=== PATIENT | female | born 1945 | race Caucasian/White ===

== ENCOUNTER → 2017-05-10 | Outpatient (CLI) | payer MEDICARE, OTHER ==
--- NOTE | 2017-05-10 14:31 | PCVCIMAG ---
APPROVED REPORT Study performed: 05/10/2017 12:57:02 EXAM: Comprehensive 2D, Doppler, and color-flow Echocardiogram Status: routine Other Information Study Quality: Adequate Indications CAD Hypertension/HDD Breast cancer. PVD 2D Dimensions IVSd: 8.48 (7-11mm)LVOT Diam: 15.25 (18-24mm) LVDd: 46.65 mm LVPWs: 24.50 mm PWd: 8.10 (7-11mm)Ascending Ao: 29.52 (22-36mm) LVDs: 30.32 (25-40mm) Left Atrium: 40.24 (27-40mm) Aortic Root: 22.94 mm Weiss's LVEF: 64.30 % Volumes Left Atrial Volume (Systole) Single Plane 4CH: 33.46 mLSingle Plane 2CH: 25.26 mL LA ESV Index: 19.00 mL/m2 Aortic Valve LVOT Max P.47 mmHg LVOT Max V: 0.93 m/s Mitral Valve E/A Ratio: 1.0 MV Decel. Time: 125.33 ms MV E Max Kelton.: 0.73 m/s MV A Kelton.: 0.73 m/s IVRT: 121.11 ms Pulmonary Vein P Vein S: 0.66 m/sP Vein A: 0.28 m/s P Vein D: 0.51 m/sP Vein A Dur.: 34.6 msec P Vein S/D Ratio: 1.29 Tricuspid Valve TR Peak Kelton.: 2.60 m/s TR Peak Gr.: 27.02 mmHg Left Ventricle The left ventricle is normal size. There is normal LV segmental wall motion. There is normal left ventricular wall thickness. Left ventricular systolic function is normal. The left ventricular ejection fraction is within the normal range. LVEF is 50%. The left ventricular diastolic function is normal. Right Ventricle The right ventricle is normal size. The right ventricular systolic function is normal. Atria The left atrium size is normal. The right atrium size is normal. Aortic Valve The aortic valve is normal in structure. No aortic regurgitation is present. There is no aortic valvular stenosis. Mitral Valve The mitral valve is normal in structure. Mild mitral regurgitation. Tricuspid Valve The tricuspid valve is normal in structure. Mild tricuspid regurgitation. P Pulmonic Valve The pulmonary valve is normal in structure. Trace pulmonic regurgitation. Great Vessels The aortic root is normal in size. IVC is normal in size and collapses with >50% inspiration Pericardium There is no pericardial effusion. <Conclusion> The left ventricle is normal size. There is normal left ventricular wall thickness. The left ventricular diastolic function is normal. The right ventricle is normal size. The left atrium size is normal. The right atrium size is normal. Mild mitral regurgitation. The aortic root is normal in size. There is no pericardial effusion.
== END | disposition home or self-care (01) ==
LOC: PCVCIMAG 12:50
PROVIDERS: ATTEND Internal Medicine Cardiovascular Disease
DX: I08.1 Rheumatic disorders of both mitral and tricuspid valves (principal); I10 Essential (primary) hypertension; E11.9 Type 2 diabetes mellitus without complications; I25.10 Atherosclerotic heart disease of native coronary artery without angina pectoris; K21.9 Gastro-esophageal reflux disease without esophagitis; I73.9 Peripheral vascular disease, unspecified; E11.319 Type 2 diabetes mellitus with unspecified diabetic retinopathy without macular edema; E78.5 Hyperlipidemia, unspecified; I65.29 Occlusion and stenosis of unspecified carotid artery; Z90.11 Acquired absence of right breast and nipple; Z79.4 Long term (current) use of insulin; Z79.899 Other long term (current) drug therapy; Z88.1 Allergy status to other antibiotic agents; Z88.5 Allergy status to narcotic agent; Z87.891 Personal history of nicotine dependence; Z95.1 Presence of aortocoronary bypass graft; Z85.3 Personal history of malignant neoplasm of breast
CPT/HCPCS: 80061; 93005; 93306; G0463

== ENCOUNTER → 2017-10-11 | Outpatient (CLI) | payer MEDICARE, OTHER ==
[~2017-10-11] MED LIST: REGADENOSON 0.4 MG/5 ML DISP.SYRIN. IV ONE
--- NOTE | 2017-10-11 16:59 | PCVCIMAG ---
APPROVED REPORT Exam: Nuclear Stress Test Indication: CAD Patient Location: Out-Patient Stress Nurse: Betty Glaser RN, Verónica Ashraf RN [place] Tech:Justin RamirezJEANNE Ht: 5 ft 1 in Wt: 137 lbs BSA: 1.61 m2 HR: 55 bpm BP: 164/71 mmHg BMI: 25.8 Rhythm: SB, T wave abnormality Medical History Medical History: Age, Hyperlipidemia, HTN, Former Smoker Medications: Amlodipine, Clopidogrel, Cymbalta, Lantus, Ativan, Bystolic (held 24 hours) Crestor Allergies: Augmentin, Codeine, EES, Levaquin Previous Cardiac Procedures: Known RCA occlusion, Prior Nuc- ishcemic Pretest Chest Pain Characteristics: No chest pain Exercise History: Sedentary Physical Disabilities: Legs NM EXAM: Myocardial Perfusion REST/STRESS Imaging Protocol: Rest Tc-99m/Stress Tc-99m 1 day Resting Data Rest SPECT myocardial perfusion imaging was performed in supine position 45 minutes following the intravenous injection of 11.7 mCi of Tc-99m Sestamibi. Time of rest injection: 0900 Date: 10/11/2017 Administration Route: IV Administration Site: Left Hand Pharmacologic Stress Pharmacologic stress test was performed by injecting Regadenoson 0.4 mg IV push followed by the intravenous injection of 35 mCi of Tc-99m Sestamibi. Time of stress injection: 1025 Date: 10/11/2017 Administration Route: IV Administration Site: Left Hand Gated Stress SPECT was performed 45 minutes after stress injection. The images were gated to evaluate regional wall motion and calculate left ventricular ejection fraction. Study Quality Study: Good Study Data Post stress, the left ventricular ejection was 79%.. SSS: 5 SRS: 6 SDS: 3 TID = 0.93. 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 Wall Motion Normal left ventricular size and function. 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 Post stress, the left ventricular ejection was 79%.. No change since prior study dated July 2016. Interpreted by: Clyde Umana MD Electronically Approved: 10/11/2017 12:53:25 Stress Test Details Stress Test: Pharmacologic stress testing performed using 0.4 mg of regadenoson per 5 mL given IV over 10 seconds. Reason for pharmacologic stress test: Leg pain. HR Resting HR: 55 bpmMax Heart Rate (APMHR): 149 bpm Max HR Achieved: 71 bpmTarget HR (85% APMHR): 126 bpm % of APMHR: 47 Recovery HR: 63 bpm BP Resting BP: 164/71 mmHg Max BP: 150/67 mmHg ECG Resting ECG: Sinus Bradycardia, TWave abnormality Stress ECG: Sinus Rhythm Recovery ECG: Sinus Rhythm Clinical Reason for Termination: Completed protocol Stress Symptoms: Nausea, Dyspnea, Exercise duration: min 55 sec Exercise capacity: 1.0 METs Symptoms resolved over time Stress ECG Conclusion ECG: Non-ischemic Clinical: Non-ischemic <Conclusion> ECG: Non-ischemic Clinical: Non-ischemic
== END | disposition home or self-care (01) ==
LOC: PCVCIMAG 08:48
PROVIDERS: ATTEND Internal Medicine Cardiovascular Disease
DX: I25.10 Atherosclerotic heart disease of native coronary artery without angina pectoris (principal); E78.5 Hyperlipidemia, unspecified; I10 Essential (primary) hypertension; Z87.891 Personal history of nicotine dependence
CPT/HCPCS: 78452; 93017; A9500; J2785

== ENCOUNTER → 2018-04-15 | Outpatient (CLI) | payer MEDICARE, OTHER | END | disposition home or self-care (01) | LOC: PCVCCLINIC 11:17 | DX: I25.10 Atherosclerotic heart disease of native coronary artery without angina pectoris (principal); I10 Essential (primary) hypertension; E10.8 Type 1 diabetes mellitus with unspecified complications; E10.65 Type 1 diabetes mellitus with hyperglycemia; I34.0 Nonrheumatic mitral (valve) insufficiency; R94.31 Abnormal electrocardiogram [ECG] [EKG]; Z95.1 Presence of aortocoronary bypass graft; Z88.8 Allergy status to other drugs, medicaments and biological substances; Z87.891 Personal history of nicotine dependence; Z79.4 Long term (current) use of insulin; Z79.899 Other long term (current) drug therapy | CPT/HCPCS: 80061; 93005; G0463 ==

== ENCOUNTER → 2018-10-07 | Outpatient (CLI) | payer MEDICARE, OTHER | END | disposition home or self-care (01) | LOC: PCVCCLINIC 11:53 | PROVIDERS: ATTEND Internal Medicine Cardiovascular Disease | DX: I25.810 Atherosclerosis of coronary artery bypass graft(s) without angina pectoris (principal); I10 Essential (primary) hypertension; I34.0 Nonrheumatic mitral (valve) insufficiency; E11.9 Type 2 diabetes mellitus without complications; I25.5 Ischemic cardiomyopathy; I73.9 Peripheral vascular disease, unspecified; I65.23 Occlusion and stenosis of bilateral carotid arteries; K21.9 Gastro-esophageal reflux disease without esophagitis; Z79.4 Long term (current) use of insulin | CPT/HCPCS: 80061; 93005; G0463 ==

== ENCOUNTER → 2019-02-17 | Outpatient (CLI) | payer MEDICARE, OTHER ==
--- NOTE | 2019-02-17 16:21 | PCVCIMAG ---
APPROVED REPORT Study performed: 02/17/2019 11:32:22 EXAM: Comprehensive 2D, Doppler, and color-flow Echocardiogram Patient Location: Echo lab Status: routine BSA: 1.60 HR: 55 bpmBP: 120/76 mmHg Rhythm: Bradycardia Other Information Study Quality: Adequate Risk Factors: Cardiac Risk Factors: HTN Indications Diabetes CAD 2D Dimensions IVSd: 10.95 (7-11mm) LVDd: 35.51 mm PWd: 8.90 (7-11mm)Ascending Ao: 29.32 (22-36mm) LVDs: 25.55 (25-40mm) Left Atrium: 40.94 (27-40mm) Aortic Root: 27.79 mm LV Single Plane 4CH: 54.78 % LV Single Plane 2CH: 59.39 % Biplane EF: 54.9 % Volumes Left Atrial Volume (Systole) Single Plane 4CH: 43.55 mLSingle Plane 2CH: 36.14 mL LA ESV Index: 26.00 mL/m2 Aortic Valve AoV Peak Kelton.: 1.08 m/s AO Peak Gr.: 4.65 mmHgLVOT Max P.56 mmHg LVOT Max V: 0.80 m/s Mitral Valve E/A Ratio: 0.7 MV Decel. Time: 286.42 ms MV E Max Kelton.: 0.56 m/s MV A Kelton.: 0.77 m/s IVRT: 131.49 ms Pulmonary Valve PV Peak Kelton.: 0.90 m/sPV Peak Gr.: 3.22 mmHg Pulmonary Vein P Vein S: 0.40 m/sP Vein A: 0.25 m/s P Vein D: 0.51 m/sP Vein A Dur.: 124.6 msec P Vein S/D Ratio: 0.78 Tricuspid Valve TR Peak Kelton.: 2.59 m/s TR Peak Gr.: 26.86 mmHg TV Vmax: 0.46 m/s Left Ventricle The left ventricle is normal size. There is normal LV segmental wall motion. There is normal left ventricular wall thickness. Left ventricular systolic function is normal. The left ventricular ejection fraction is within the normal range. LVEF is >55%. Grade I - abnormal relaxation pattern. Right Ventricle The right ventricle is normal size. The right ventricular systolic function is normal. Atria The left atrium size is normal. The right atrium size is normal. Aortic Valve The aortic valve is normal in structure. No aortic regurgitation is present. There is no aortic valvular stenosis. Mitral Valve The mitral valve is normal in structure. Trace mitral regurgitation. No evidence of mitral valve stenosis. Tricuspid Valve The tricuspid valve is normal in structure. Mild tricuspid regurgitation with PAP of 34 mmHg. Pulmonic Valve The pulmonary valve is normal in structure. There is no pulmonic valvular regurgitation. Great Vessels The aortic root is normal in size. IVC is normal in size and collapses >50% with inspiration. Pericardium There is no pericardial effusion. There is no pleural effusion. <Conclusion> The left ventricle is normal size. LVEF is >55%. Grade I - abnormal relaxation pattern. The right ventricle is normal size. The left atrium size is normal. The aortic valve is normal in structure. Trace mitral regurgitation. Mild tricuspid regurgitation with PAP of 34 mmHg. The aortic root is normal in size. There is no pericardial effusion.
--- NOTE | 2019-02-18 11:02 | PCVCIMAG ---
APPROVED REPORT Imaging Protocol: Rest Tc-99m/Stress Tc-99m 1 day Study performed: 02/17/2019 13:01:52 Indication: CAD , Fatigue, ICM, Chest pain Patient Location: Out-Patient Stress Nurse: Betty Glaser RN [place] Tech:Marianela Reji [facility] Ht: 5 ft 1 in Wt: 136 lbs BSA: 1.60 m2 HR: 56 bpm BP: 145/68 mmHg BMI: 25.6 Rhythm: Sinus Rhythm, nonspecific ST-T abnormalities Medical History Medical History: HTN, Hyperlipidemia, CKD, CVD, PVD, Former Smoker, Diabetic Insulin Medications: Norvasc, Insulin, Irbesartan, Bystolic, NTG SL, Crestor Allergies: Many - None relevant to this test Cardiac Risk Factors: Age Previous Cardiac Procedures: 1997 CABG Pretest Chest Pain Characteristics: No chest pain Exercise History: Sedentary Meds Held (24 hrs): Bystolic Resting Data Rest SPECT myocardial perfusion imaging was performed in supine position 45 minutes following the intravenous injection of 10.2 mCi of Tc-99m Sestamibi. Time of rest injection: 1245 Date: 02/17/2019 Administration Route: IV Administration Site: Left Arm Pharmacologic Stress Pharmacologic stress test was performed by injecting Regadenoson 0.4 mg IV push over 10-15 seconds immediately followed by the intravenous injection of 33.1 mCi of Tc-99m Sestamibi. Time of stress injection: 1340 Date: 02/17/2019 Administration Route: IV Administration Site: Left Arm Gated Stress SPECT was performed 45 minutes after stress injection. The images were gated to evaluate regional wall motion and calculate left ventricular ejection fraction. Stress Test Details Stress Test: Pharmacologic stress testing performed using 0.4 mg of regadenoson per 5 mL given IV over 10 seconds. Reason for pharmacologic stress test: physical inactive. HRMax Heart Rate (APMHR): 148 bpm Resting HR: 56 bpmTarget HR (85% APMHR): 125 bpm Max HR Achieved: 71 bpm % of APMHR: 47 Recovery HR: 66 bpm BP Resting BP: 145/68 mmHg Max BP: 116/53 mmHg Recovery BP: 116/53 mmHg ECG Resting ECG: Sinus Rhythm, nonspecific ST-T abnormalities Stress ECG: Sinus Rhythm, nonspecific ST-T abnormalities Arrhythmia: None, None, APC's Recovery ECG: Sinus Rhythm, nonspecific ST-T abnormalities Clinical Reason for Termination: Completed protocol Stress Symptoms: Heavy shoulders, weak arms Exercise duration: 0 min 55 sec Symptoms resolved with caffeine. Stress ECG Conclusion ECG: Non-ischemic ECG: Non-ischemic Study Quality Study: Good Study Data Post stress, the left ventricular ejection was 70%.. SSS: 5 SRS: 1 SDS: 5 TID = 2.30. 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 Post stress, the left ventricular ejection was 70%. Interpreted by: Clyde Umana MD Electronically Approved: 02/18/2019 11:01:04 <Conclusion> ECG: Non-ischemic ECG: Non-ischemic
== END | disposition home or self-care (01) ==
LOC: PCVCIMAG 08:00
PROVIDERS: ATTEND Internal Medicine Cardiovascular Disease
DX: I07.1 Rheumatic tricuspid insufficiency (principal); I25.10 Atherosclerotic heart disease of native coronary artery without angina pectoris; E11.9 Type 2 diabetes mellitus without complications; E78.00 Pure hypercholesterolemia, unspecified; I25.5 Ischemic cardiomyopathy; R53.83 Other fatigue; I10 Essential (primary) hypertension; K21.9 Gastro-esophageal reflux disease without esophagitis; E78.5 Hyperlipidemia, unspecified; Z87.891 Personal history of nicotine dependence
CPT/HCPCS: 36415; 78452; 80061; 93005; 93017; 93306; A9500; G0463; J2785

== ENCOUNTER → 2019-08-26 | Outpatient (CLI) | payer MEDICARE, OTHER ==
--- NOTE | 2019-08-26 14:46 | PCVCIMAG ---
APPROVED REPORT Indications Bruit Stenosis Risk Factors Hypertension: Hyperlipidemia Diabetes, Doppler Spectral Velocity Analysis PSV / EDVPSV / EDV ECA (R) 258 / 19 cm/sECA (L) 118 / 8 cm/s dICA (R) 93 / 32 cm/sdICA (L) 94 / 24 cm/s Tahmina (R) 88 / 23 cm/smICA (L) 69 / 18 cm/s pICA (R) 118 / 28 cm/spICA (L) 106 / 21 cm/s Bulb (R) 74 / 13 cm/sBulb (L) 74 / 21 cm/s dCCA (R) 56 / 10 cm/sdCCA (L) 78 / 13 cm/s mCCA (R) 70 / 10 cm/smCCA (L) 92 / 10 cm/s Vert (R) 53 / 12 cm/sVert (L) 116 / 22 cm/s ICA/CCA 1.68ICA/CCA 1.16 Basic Measurements Blood Pressure: Pulses: Right Left RightLeft Brachial(Sitting) 122/56mmHgTemporal Real Time B-Mode Imaging Vert. (R)AntegradeVert. (L)Antegrade Findings The right carotid bulb has moderate calcified plaque. The right proximal internal carotid artery shows <40% stenosis. The right common carotid artery shows no significant stenosis. The right external carotid artery shows >50% stenosis. The left carotid bulb has moderate calcified plaque. The left proximal internal carotid artery shows <40% stenosis. The left common carotid artery shows no significant stenosis. The left external carotid artery shows no significant stenosis. Conclusion 1. Right internal carotid artery stenosis (<40%). 2. Left internal carotid artery stenosis (<40%). 3. Antegrade vertebral flow.
== END | disposition home or self-care (01) ==
LOC: PCVCIMAG 12:54
PROVIDERS: ATTEND Internal Medicine Cardiovascular Disease
DX: I65.23 Occlusion and stenosis of bilateral carotid arteries (principal); I25.10 Atherosclerotic heart disease of native coronary artery without angina pectoris; I34.0 Nonrheumatic mitral (valve) insufficiency; I25.5 Ischemic cardiomyopathy; I10 Essential (primary) hypertension; E78.00 Pure hypercholesterolemia, unspecified; I49.8 Other specified cardiac arrhythmias; K21.9 Gastro-esophageal reflux disease without esophagitis; E11.9 Type 2 diabetes mellitus without complications; E78.5 Hyperlipidemia, unspecified; Z79.899 Other long term (current) drug therapy; Z79.4 Long term (current) use of insulin; Z95.1 Presence of aortocoronary bypass graft; Z88.8 Allergy status to other drugs, medicaments and biological substances; Z87.891 Personal history of nicotine dependence
CPT/HCPCS: 93880